=== PATIENT | female | born 1990 | race Two or more races ===

== ENCOUNTER 2017-12-04 22:13 | Emergency (ER) | payer OTHER ==
--- NOTE | 2017-12-05 02:23 | ER Document Report ---
ED General - General Mode of Arrival: Ambulatory Information source: Patient TRAVEL OUTSIDE OF THE [place] IN LAST 30 DAYS: No <MEGAN YODER - Last Filed: 12/05/17 02:46> <CANDIE JOHN - Last Filed: 12/05/17 03:02> - General Chief Complaint: Rectal Bleeding Stated Complaint: RECTAL BLEEDING Time Seen by Provider: 12/05/17 00:58 Notes: Patient is a 27-year-old female presenting to the emergency department complaining of rectal bleeding onset last night. Patient states after her bowel movement she noticed blood on the toilet paper and in the toilet. Patient states that it was painful during her bowel movement and she was excessively straining. At bedside patient states she is in no pain but has some abdominal cramps due to her current menstrual cycle. Patient denies any nausea vomiting or diarrhea. (MEGAN YODER) - Related Data Allergies/Adverse Reactions: No Known Allergies Allergy (Unverified 12/04/17 22:16) Past Medical History - General Information source: Patient - Social History Smoking Status: Unknown if Ever Smoked Family History: Reviewed & Not Pertinent Patient has suicidal ideation: No Patient has homicidal ideation: No <MEGAN YODER - Last Filed: 12/05/17 02:46> Review of Systems - Review of Systems Constitutional: No symptoms reported EENT: No symptoms reported Cardiovascular: No symptoms reported Respiratory: No symptoms reported Gastrointestinal: See HPI, Rectal bleeding Genitourinary: No symptoms reported Female Genitourinary: No symptoms reported Musculoskeletal: No symptoms reported Skin: No symptoms reported Hematologic/Lymphatic: No symptoms reported Neurological/Psychological: No symptoms reported -: Yes All other systems reviewed and negative <MEGAN YODER - Last Filed: 12/05/17 02:46> Physical Exam - Vital signs Interpretation: Normal - General General appearance: Appears well, Alert - HEENT Head: Normocephalic, Atraumatic Eyes: Normal Pupils: PERRL - Respiratory Respiratory status: No respiratory distress Chest status: Nontender Breath sounds: Normal Chest palpation: Normal - Cardiovascular Rhythm: Regular Heart sounds: Normal auscultation Murmur: No - Abdominal Inspection: Normal Distension: No distension Bowel sounds: Normal Tenderness: Nontender Organomegaly: No organomegaly - Rectal Tenderness: No Hemorrhoids: Anal fissure - at 6:00 - Back Back: Normal, Nontender - Extremities General upper extremity: Normal inspection, Nontender, Normal color, Normal ROM , Normal temperature General lower extremity: Normal inspection, Nontender, Normal color, Normal ROM , Normal temperature, Normal weight bearing. No: Zoe's sign - Neurological Neuro grossly intact: Yes Cognition: Normal Orientation: AAOx4 [place] Coma Scale Eye Opening: Spontaneous [place] Coma Scale Verbal: Oriented [place] Coma Scale Motor: Obeys Commands [place] Coma Scale Total: 15 Speech: Normal Motor strength normal: LUE, RUE, LLE, RLE Sensory: Normal - Psychological Associated symptoms: Normal affect, Normal mood - Skin Skin Temperature: Warm Skin Moisture: Dry Skin Color: Normal <CANDIE JOHN - Last Filed: 12/05/17 03:02> - Vital signs Vitals: Pulse Resp BP Pulse Ox 81 17 111/60 100 12/05/17 02:33 12/05/17 02:33 12/05/17 02:33 12/05/17 02:33 Course <MEGAN YODER - Last Filed: 12/05/17 02:46> <CANDIE JOHN - Last Filed: 12/05/17 03:02> - Re-evaluation Re-evalutation: 12/05/17 03:01 Patient is a 27-year-old female who came in for rectal bleeding after having hard stool. She has had this in the past. Noticed blood on the toilet paper. She does not have any abdominal pain or any other symptoms. Patient has an anal fissure. She will be given a prescription for stool softeners and is to follow-up with her doctor. Return if any worsening or concerning symptoms. Stable for discharge. Understands and agrees with plan. (CANDIE JOHN ) - Vital Signs Vital signs: Temp Pulse Resp BP Pulse Ox 81 17 111/60 100 12/05/17 02:33 12/05/17 02:33 12/05/17 02:33 12/05/17 02:33 Discharge <MEGAN YODER - Last Filed: 12/05/17 02:46> <CANDIE JOHN - Last Filed: 12/05/17 03:02> - Discharge Clinical Impression: Anal fissure, Possible internal hemorrhoid Condition: Stable Disposition: HOME, SELF-CARE Instructions: Anal Fissure ([facility]), Hemorrhoids ([facility]) Prescriptions: Docusate Sodium [Colace 100 mg Capsule] 100 mg PO BID #60 capsule Scribe Attestation: 12/05/17 03:02 I personally performed the services described in the documentation, reviewed and edited the documentation which was dictated to the scribe in my presence, and it accurately records my words and actions. (CANDIE JOHN) Scribe Documentation - Scribe Written by Rashaad:: Rashaad Sol, 12/05/2017 02:48 acting as scribe for :: Zechariah <MEGAN YODER - Last Filed: 12/05/17 02:46>
[2017-12-05 02:35] VITALS: BP 111/60
== END 2017-12-05 02:33 | disposition home or self-care (01) ==
LOC: ER 22:13
DX: K60.2 Anal fissure, unspecified (principal); K62.5 Hemorrhage of anus and rectum
CPT/HCPCS: 99283